=== PATIENT | male | born 1985 | race Two or more races ===

== ENCOUNTER 2017-05-19 16:01 | Emergency (ER) | payer OTHER ==
[~2017-05-19] VITALS: Ht 182.9 cm; Wt 88.5 kg
[2017-05-19 16:10] VITALS: BP 142/77
[2017-05-19] MEDS ORDERED: ONDANSETRON ODT 4 MG ONE ×2 (17:17→19:45)
[2017-05-19] MEDS: ONDANSETRON 2MG/ML, 2ML IVPush ONE ×2 (17:19→18:34)
[2017-05-19] MEDS ORDERED: ACETAMINOPHEN 325 MG TABLET PO ONE (17:30)
[2017-05-19] MEDS ORDERED: SODIUM CHLORIDE FLUSH 10ML SYR IVF ONE (17:30)
[2017-05-19] MEDS ORDERED: ONDANSETRON ODT 4 MG PO ONE ×2 (17:30→20:00)
[2017-05-19] MEDS ORDERED: SODIUM CHLORIDE 0.9% 1,000ML IVBOLUS ONE (17:30)
[2017-05-19 17:46] LABS: HEMATOCRIT 45.1 % (39.2-51.8); HEMOGLOBIN 15.4 g/dL (13.7-18.0); WHITE BLOOD COUNT 3.8 x10^3/uL (3.4-10)
[2017-05-19 17:51] LABS: BLOOD UREA NITROGEN 15 mg/dL (7-18)
[2017-05-19 17:59] LABS: DIFF TOTAL CELLS COUNTED 100 CELL DIFF
[2017-05-19 18:02] LABS: VERIFY COUNTS? YES
[2017-05-19] MEDS ORDERED: ACETAMINOPHEN 325 MG TABLET ONE (18:32)
[2017-05-19] MEDS ORDERED: ONDANSETRON 2MG/ML, 2ML ONE (18:33)
== END 2017-05-19 19:49 | disposition home or self-care (01) ==
LOC: ED 19:43
DX: J09.X3 Influenza due to identified novel influenza A virus with gastrointestinal manifestations (principal); K52.9 Noninfective gastroenteritis and colitis, unspecified; K29.00 Acute gastritis without bleeding
CPT/HCPCS: 36415; 71020; 80048; 82040; 85025; 96361; 96374; 99285; J2405; J7030; Q0162